=== PATIENT | male | born 1985 | race Caucasian/White ===

== ENCOUNTER 2024-09-09 00:56 | Emergency (ER) | payer SELFPAY ==
[~2024-09-09] VITALS: Ht 167.6 cm; Wt 73.0 kg
[2024-09-09 01:17] VITALS: O2SAT 99
[2024-09-09] MEDS: LIDOCAINE HCL/PF 1% 10 MG/ML 5ML VIAL INFIL ONE (02:51)
[2024-09-09] MEDS: BACITRACIN ZINC OINT UDPKT TOP ONE (02:51)
[2024-09-09] MEDS: TETANUS, DIPHTHERIA, PERTUSSIS VAC/PF 0.5ML (>10YR OLD) IM ONE (03:08)
[2024-09-09 03:25] VITALS: BP 147/81; PULSE 78; RESP 16; TEMP 36.8; O2SAT 100
== END 2024-09-09 03:25 | disposition home or self-care (01) ==
LOC: ER 00:56
DX: S01.21XA Laceration without foreign body of nose, initial encounter (principal); X58.XXXA Exposure to other specified factors, initial encounter; Y93.89 Activity, other specified; Y92.89 Other specified places as the place of occurrence of the external cause; Y99.8 Other external cause status
CPT/HCPCS: 90715; 12013; 90471; 99283; J2003; Z7610 ×2